=== PATIENT | female | born 1990 | race Hispanic/Latino ===

== ENCOUNTER 2023-03-21 17:23 | Inpatient (IN) | payer MEDICAID, OTHER ==
[2023-03-21] MEDS ORDERED: Carboprost 250 MCG/ML AMP IM PRN (19:02)
[2023-03-21] MEDS ORDERED: Ondansetron PF 4 MG/2 ML Vial IVP PRN (19:02)
[2023-03-21] MEDS ORDERED: Ibuprofen 800 MG TAB PO PRN (19:02)
[2023-03-21] MEDS ORDERED: Acetaminophen 500 MG TAB PO PRN (19:02)
[2023-03-21] MEDS ORDERED: fentaNYL 50 mcg/mL 1 mL Vial SLOW IVP PRN (19:02)
[2023-03-21] MEDS ORDERED: Misoprostol 200 MCG TAB PR PRN (19:02)
[2023-03-21] MEDS ORDERED: Lidocaine 1% (PF) 30 ML VIAL SC PRN (19:02)
[2023-03-21] MEDS ORDERED: Promethazine HCl 25 MG/ML VIAL IM PRN (19:02)
[2023-03-21] MEDS ORDERED: Tranexamic Acid 1,000 MG/10 ML VIAL IVP PRN (19:02)
[2023-03-21] MEDS ORDERED: Methylergonovine 0.2 MG/ML VIAL IM PRN (19:02)
[2023-03-21] MEDS ORDERED: hydrALAZINE 20 MG/ML VIAL SLOW IVP PRN (19:02)
[2023-03-21] MEDS ORDERED: Diphenoxylate HCl/Atropine Tablet PO PRN (19:02)
[2023-03-21 19:13] LABS: Fetal Membranes Rupture RUPTURE DETECTED (No Rupture)
[2023-03-21] MEDS ORDERED: Penicillin G Potassium 5 MILL.UNITS in Sodium Chloride 0.9% 100 ML IVPB SCH (19:15)
[2023-03-21] MEDS ORDERED: Lactated Ringer's 1,000 ML IV SCH (19:15)
[2023-03-21] MEDS ORDERED: Betamet Acet/Betamet Na Ph 30 MG/5 ML VIAL IM SCH (19:15)
[2023-03-21] MEDS ORDERED: Misoprostol 100 MCG TAB VAG SCH (19:15)
[2023-03-21] MEDS ORDERED: Oxytocin 30 units/NS 500 ML 500 ML IV SCH ×2 (19:15)
[2023-03-21] MEDS ORDERED: Labetalol HCl 100 MG/20 ML VIAL SLOW IVP PRN (20:24)
[2023-03-21 21:16] LABS: Hematocrit 28.6 % (34.9-44.5); Mean Corpuscular Hemoglobin 26.5 pg (27.0-33.0); Mean Corpuscular Volume 75.9 fl (81.6-98.3); Mean Platelet Volume 10.1 fl (7.4-10.4); Platelet Count 263 10x3/uL (150-450); RBC Distribution Width 13.2 % (11.5-14.5); Red Blood Cell (RBC) Count 3.77 10x6/uL (3.90-5.03); White Blood Cell (WBC) Count 5.4 10x3/uL (3.5-10.5)
[2023-03-21 21:29] LABS: HBSAg Index 0.14 S/CO (0-0.99); Hep B Surf Ag - L&D Non-Reactive S/CO (NonReactive)
[2023-03-21 21:30] LABS: Syphilis Antibody Nonreactive (Nonreactive); Syphilis Antibody Index 0.05 S/CO (<1.00 Non-Reactive)
[2023-03-21 22:00] VITALS: BMI 35.9
[2023-03-21 22:17] LABS: Glucose 95 mg/dL (70-105)
[2023-03-21] MEDS ORDERED: Penicillin G 2.5 MILL.units 2.5 MILL.UNITS in Premix 1 BAG IVPB SCH (23:15)
[2023-03-22] MEDS ORDERED: Ondansetron PF 4 MG/2 ML Vial IVP PRN (06:07)
[2023-03-22] MEDS ORDERED: Boostrix 0.5 ML (Tdap) VIAL (>/=7 yrs of age) IM ONE (06:07)
[2023-03-22] MEDS ORDERED: Bisacodyl 10 MG SUPP PR PRN (06:07)
[2023-03-22] MEDS ORDERED: Milk Of Magnesia 30 ML UDCUP PO PRN (06:07)
[2023-03-22] MEDS ORDERED: Lanolin Ointment 7 GM TUBE TOP PRN (06:07)
[2023-03-22] MEDS ORDERED: hydrALAZINE 20 MG/ML VIAL SLOW IVP PRN (06:07)
[2023-03-22] MEDS: Ibuprofen 800 MG TAB PO SCH ×3 (06:28→22:10)
[2023-03-22] MEDS: Docusate 100 MG CAP PO SCH ×2 (07:37→22:10)
[2023-03-22] MEDS: Prenatal Vitamin 1 TAB PO SCH (07:37)
[2023-03-22] MEDS: Ferrous Sulfate 325 MG TAB PO SCH ×2 (07:37→16:23)
[2023-03-22] MEDS ORDERED: Glucagon 1 MG/ML KIT IM PRN (09:43)
[2023-03-22] MEDS ORDERED: Dextrose 50% Abboject 50 ML SYRINGE SLOW IVP PRN (09:43)
[2023-03-22] MEDS ORDERED: Dextrose 5% in Water 1,000 ML IV PRN (09:43)
[2023-03-23] MEDS: Ibuprofen 800 MG TAB PO SCH ×3 (06:13→21:53)
[2023-03-23] MEDS: Ferrous Sulfate 325 MG TAB PO SCH ×2 (07:47→17:59)
[2023-03-23] MEDS: Docusate 100 MG CAP PO SCH ×2 (07:48→21:53)
[2023-03-23] MEDS: Prenatal Vitamin 1 TAB PO SCH (07:48)
[2023-03-23] MEDS: metFORMIN 500 MG TAB PO SCH (18:18)
[2023-03-24] MEDS: Ibuprofen 800 MG TAB PO SCH ×2 (05:47→13:52)
[2023-03-24] MEDS: metFORMIN 500 MG TAB PO SCH (08:07)
[2023-03-24] MEDS: Docusate 100 MG CAP PO SCH (08:07)
[2023-03-24] MEDS: Ferrous Sulfate 325 MG TAB PO SCH (08:07)
[2023-03-24] MEDS: Prenatal Vitamin 1 TAB PO SCH (08:07)
[2023-03-24 08:17] VITALS: BP 130/87; TEMP 99
== END 2023-03-24 16:00 | disposition home or self-care (01) | DRG 807 ==
LOC: CSHLD/OP 17:23 → CSHLD 19:24 → CSHPP 03-22 05:52
PROVIDERS: ADMIT Family Medicine; ATTEND Family Medicine
PROC: 10E0XZZ Delivery of Products of Conception, External Approach (ICD-10-PCS; principal; 2023-03-22)
DX: O42.013 Preterm premature rupture of membranes, onset of labor within 24 hours of rupture, third trimester (principal); Z37.0 Single live birth; Z3A.35 35 weeks gestation of pregnancy; O24.429 Gestational diabetes mellitus in childbirth, unspecified control; O16.4 Unspecified maternal hypertension, complicating childbirth
CPT/HCPCS: 36416; 82947; 84112; 85027; 86780; 86850; 86900; 86901; 87340; J3010

== ENCOUNTER 2024-03-10 17:55 | Inpatient (IN) | payer MEDICAID, OTHER ==
[2024-03-10] MEDS ORDERED: Promethazine HCl 25 MG/ML VIAL IM PRN (20:00)
[2024-03-10] MEDS ORDERED: Misoprostol 200 MCG TAB PR PRN (20:00)
[2024-03-10] MEDS ORDERED: Carboprost 250 MCG/ML AMP IM PRN (20:00)
[2024-03-10] MEDS ORDERED: Tranexamic Acid 1,000 MG/10 ML VIAL IVP PRN (20:00)
[2024-03-10] MEDS ORDERED: Ibuprofen 800 MG TAB PO PRN (20:00)
[2024-03-10] MEDS ORDERED: Diphenoxylate HCl/Atropine Tablet PO PRN (20:00)
[2024-03-10] MEDS ORDERED: Ondansetron PF 4 MG/2 ML Vial IVP PRN (20:00)
[2024-03-10] MEDS ORDERED: hydrALAZINE 20 MG/ML VIAL SLOW IVP PRN (20:00)
[2024-03-10] MEDS ORDERED: Acetaminophen 500 MG TAB PO PRN (20:00)
[2024-03-10] MEDS ORDERED: Lidocaine 1% (PF) 30 ML VIAL SC PRN (20:00)
[2024-03-10] MEDS ORDERED: Oxytocin 30 units/NS 500 ML 500 ML IV SCH ×2 (20:00)
[2024-03-10] MEDS: Oxytocin 30 units/NS 500 ML 500 ML IV SCH (21:03)
[2024-03-10 21:51] LABS: #Basophils 0.01 10x3/uL (0.0-0.2); #Eosinophils 0.08 10x3/uL (0.0-0.5); #Monocytes 0.53 10x3/uL (0.0-1.1); #Neutrophils 3.48 10x3/uL (1.5-8.4); %Basophils 0.2 % (0.0-2.0); %Eosinophils 1.3 % (0.0-6.0); %Lymphocytes 31.7 % (18.0-47.0); %Monocytes 8.7 % (0.0-10.0); %Neutrophils 57.4 % (40.0-75.0); Hematocrit 31.1 % (34.9-44.5); Hemoglobin 10.4 g/dL (12.0-15.5); Mean Corpuscular HGB CONC 33.4 g/dL (32.0-36.0); Mean Corpuscular Hemoglobin 25.8 pg (27.0-33.0); Mean Corpuscular Volume 77.2 fL (81.6-98.3); Mean Platelet Volume 10.2 fL (7.4-10.4); Platelet Count 280 10x3/uL (150-450); RBC Distribution Width 19.1 % (11.5-14.5); Red Blood Cell (RBC) Count 4.03 10x6/uL (3.90-5.03); White Blood Cell (WBC) Count 6.1 10x3/uL (3.5-10.5)
[2024-03-10 22:00] LABS: ALT (SGPT) Less than 7 U/L (8-55); AST (SGOT) 19 U/L (5-34); Albumin 3.1 g/dL (3.5-5.0); Alkaline Phosphatase 121 U/L (40-110); Anion Gap 16 mmol/L (10-20); BUN (Urea Nitrogen) 7 mg/dL (7.0-18.7); Bilirubin, Total 0.4 mg/dL (0.2-1.2); Calc. Creatinine Clearance 170 mL/min (70-130); Calcium 9.2 mg/dL (7.8-10.44); Carbon Dioxide 18 mmol/L (22-29); Chloride 105 mmol/L (98-107); Estimated GFR 119; Globulin 3.5 g/dL (2.4-3.5); Glucose 98 mg/dL (70-105); Potassium 3.9 mmol/L (3.5-5.1); Protein, Total 6.6 g/dL (6.0-8.3); Sodium 135 mmol/L (136-145)
[2024-03-10 22:00] LABS: Creatinine, Urine 157.96 mg/dL (47-110); Protein, Urine Random Quant Less than 10 mg/dL (1-14)
[2024-03-10 22:50] LABS: Syphilis Antibody Nonreactive (Nonreactive); Syphilis Antibody Index 0.05 S/CO (<1.00 Non-Reactive)
[2024-03-10 22:51] LABS: HBsAg Index 0.24 S/CO (0-0.99); Hep B Surf Ag - L&D Non-Reactive S/CO (NonReactive)
[2024-03-10 23:47] VITALS: BMI 38.7
[2024-03-11] MEDS: Lactated Ringer's 1,000 ML IV SCH (04:02)
[2024-03-11] MEDS ORDERED: Boostrix 0.5 ML (Tdap) VIAL (>/=7 yrs of age) IM ONE (08:10)
[2024-03-11] MEDS ORDERED: Bisacodyl 10 MG SUPP PR PRN (08:10)
[2024-03-11] MEDS: Ibuprofen 800 MG TAB PO SCH (14:10)
[2024-03-11] MEDS: HYDROcodone/Acetaminophen 5/325 mg Tablet PO PRN (16:14)
[2024-03-11] MEDS: Prenatal Vitamin 1 TAB PO SCH (16:16)
[2024-03-11] MEDS: Docusate 100 MG CAP PO SCH (16:16)
[2024-03-12 04:14] LABS: Hematocrit 29.5 % (34.9-44.5); Hemoglobin 9.6 g/dL (12.0-15.5)
[2024-03-12 11:19] VITALS: BP 135/77; TEMP 97.8
== END 2024-03-12 15:00 | disposition home or self-care (01) | DRG 806 ==
LOC: CSHLD 17:55 → CSHPP 03-11 10:05
PROVIDERS: ADMIT Family Medicine; ATTEND Family Medicine
PROC: 10E0XZZ Delivery of Products of Conception, External Approach (ICD-10-PCS; principal; 2024-03-11)
PROC: 0HQ9XZZ Repair Perineum Skin, External Approach (ICD-10-PCS; 2024-03-11)
DX: O10.92 Unspecified pre-existing hypertension complicating childbirth (principal); D62 Acute posthemorrhagic anemia; Z37.0 Single live birth; O99.214 Obesity complicating childbirth; O99.02 Anemia complicating childbirth; D57.3 Sickle-cell trait; O24.425 Gestational diabetes mellitus in childbirth, controlled by oral hypoglycemic drugs; Z3A.38 38 weeks gestation of pregnancy; Z79.82 Long term (current) use of aspirin; Z79.84 Long term (current) use of oral hypoglycemic drugs
CPT/HCPCS: 36415; 36416; 80053; 82570; 84156; 85014; 85018; 86780; 86850; 86900; 86901; 87340; J2590; J7120

== ENCOUNTER 2024-03-25 18:46 | Inpatient (IN) | payer MEDICAID ==
[2024-03-25 20:01] VITALS: BMI 32.8
[2024-03-25] MEDS ORDERED: Ondansetron ODT 4 MG TAB PO PRN (20:26)
[2024-03-25] MEDS ORDERED: Bisacodyl 5 MG TAB PO PRN (20:26)
[2024-03-25] MEDS: Lactated Ringer's 1,000 ML IV SCH (20:56)
[2024-03-25 21:20] LABS: #Basophils 0.02 10x3/uL (0.0-0.2); #Eosinophils 0.04 10x3/uL (0.0-0.5); #Monocytes 0.63 10x3/uL (0.0-1.1); #Neutrophils 4.25 10x3/uL (1.5-8.4); %Basophils 0.3 % (0.0-2.0); %Eosinophils 0.6 % (0.0-6.0); %Lymphocytes 22.5 % (18.0-47.0); %Monocytes 9.9 % (0.0-10.0); %Neutrophils 66.5 % (40.0-75.0); Hematocrit 30.1 % (34.9-44.5); Mean Corpuscular HGB CONC 33.2 g/dL (32.0-36.0); Mean Corpuscular Volume 75.3 fL (81.6-98.3); Mean Platelet Volume 9.4 fL (7.4-10.4); Platelet Count 276 10x3/uL (150-450); RBC Distribution Width 18.5 % (11.5-14.5); White Blood Cell (WBC) Count 6.4 10x3/uL (3.5-10.5)
[2024-03-25 21:45] LABS: ALT (SGPT) 21 U/L (8-55); AST (SGOT) 31 U/L (5-34); Albumin 2.7 g/dL (3.5-5.0); Alkaline Phosphatase 129 U/L (40-110); Anion Gap 13 mmol/L (10-20); BUN (Urea Nitrogen) 9 mg/dL (7.0-18.7); Bilirubin, Total 0.5 mg/dL (0.2-1.2); Calc. Creatinine Clearance 128 mL/min (70-130); Calcium 8.1 mg/dL (7.8-10.44); Carbon Dioxide 20 mmol/L (22-29); Chloride 106 mmol/L (98-107); Estimated GFR 91; Globulin 3.1 g/dL (2.4-3.5); Glucose 126 mg/dL (70-105); Potassium 3.3 mmol/L (3.5-5.1); Protein, Total 5.8 g/dL (6.0-8.3); Sodium 136 mmol/L (136-145)
[2024-03-25 22:05] LABS: Bilirubin Neg (Negative); Blood, Urine 150 (Negative); Clarity Slightly Cloudy (Clear); Glucose, Urine (Dipstick) Normal (Negative); Ketone, Urine Negative (Negative); Leukocyte 500 (Negative); Nitrite Negative (Negative); Protein, Urine (Dipstick) 100 mg/dl (Neg-Trace); Urobilinogen Normal mg/dL (Less than 2)
[2024-03-25 22:14] LABS: Transitional Epithelial 0-3 HPF (None Seen); WBC/HPF Greater than 50 HPF (0-3)
[2024-03-25 22:15] LABS: Bacteria/HPF 4+ HPF (None Seen)
[2024-03-25] MEDS: cefTRIAXone\\ROCEPHIN 1 GM in Sodium Chloride 0.9% 100 ML IVPB SCH (22:52)
[2024-03-25] MEDS: Acetaminophen 325 MG TAB PO PRN (22:53)
[2024-03-25] MEDS: Potassium Chloride 20 MEQ TAB PO SCH (22:53)
[2024-03-25] MEDS ORDERED: Furosemide 20 MG TAB PO SCH (23:45)
[2024-03-25] MEDS: Ibuprofen 200 MG TAB PO PRN (23:52)
[2024-03-26 00:47] LABS: Influenza A by NAA Not Detected (NotDetected); Influenza B by NAA Not Detected (NotDetected); RSV by NAA Not Detected (NotDetected); SARS-CoV-2 NAA Rapid Test Not Detected (NotDetected)
[2024-03-26 03:42] LABS: Hematocrit 30.9 % (34.9-44.5); Mean Corpuscular HGB CONC 32.4 g/dL (32.0-36.0); Mean Corpuscular Hemoglobin 24.9 pg (27.0-33.0); Mean Corpuscular Volume 77.1 fL (81.6-98.3); RBC Distribution Width 18.5 % (11.5-14.5); Red Blood Cell (RBC) Count 4.01 10x6/uL (3.90-5.03); White Blood Cell (WBC) Count 7.7 10x3/uL (3.5-10.5)
[2024-03-26 03:43] LABS: #Basophils 0.02 10x3/uL (0.0-0.2); #Eosinophils 0.06 10x3/uL (0.0-0.5); #Monocytes 1.02 10x3/uL (0.0-1.1); #Neutrophils 4.92 10x3/uL (1.5-8.4); %Basophils 0.3 % (0.0-2.0); %Eosinophils 0.8 % (0.0-6.0); %Lymphocytes 21.2 % (18.0-47.0); %Monocytes 13.3 % (0.0-10.0); %Neutrophils 63.9 % (40.0-75.0); Mean Platelet Volume 9.3 fL (7.4-10.4); Platelet Count 262 10x3/uL (150-450)
[2024-03-26 03:57] LABS: ALT (SGPT) 27 U/L (8-55); AST (SGOT) 41 U/L (5-34); Albumin 2.5 g/dL (3.5-5.0); Alkaline Phosphatase 128 U/L (40-110); Anion Gap 14 mmol/L (10-20); BUN (Urea Nitrogen) 9 mg/dL (7.0-18.7); Bilirubin, Total 0.4 mg/dL (0.2-1.2); Calc. Creatinine Clearance 117 mL/min (70-130); Carbon Dioxide 20 mmol/L (22-29); Chloride 109 mmol/L (98-107); Estimated GFR 82; Globulin 3.4 g/dL (2.4-3.5); Glucose 136 mg/dL (70-105); Potassium 3.5 mmol/L (3.5-5.1); Protein, Total 5.9 g/dL (6.0-8.3); Sodium 139 mmol/L (136-145)
[2024-03-26] MEDS: Prenatal Vitamin 1 TAB PO SCH (08:53)
[2024-03-26] MEDS ORDERED: Enoxaparin 30 MG (0.3 mL) SYRINGE SC SCH (09:00)
[2024-03-26] MEDS ORDERED: Iopamidol 370 76% 100 ML VIAL ONE (09:24)
[2024-03-26] MEDS: Piperacillin/Tazobactam 3.375 GM in Sodium Chloride 0.9% 100 ML IVPB SCH ×2 (18:12→22:36)
[2024-03-27 04:16] LABS: #Basophils 0.02 10x3/uL (0.0-0.2); #Eosinophils 0.19 10x3/uL (0.0-0.5); #Monocytes 0.86 10x3/uL (0.0-1.1); %Basophils 0.3 % (0.0-2.0); %Eosinophils 2.9 % (0.0-6.0); %Lymphocytes 25.7 % (18.0-47.0); %Neutrophils 57.3 % (40.0-75.0); Hematocrit 30.5 % (34.9-44.5); Hemoglobin 9.8 g/dL (12.0-15.5); Mean Corpuscular HGB CONC 32.1 g/dL (32.0-36.0); Mean Corpuscular Hemoglobin 24.6 pg (27.0-33.0); Mean Corpuscular Volume 76.6 fL (81.6-98.3); Mean Platelet Volume 9.8 fL (7.4-10.4); Platelet Count 287 10x3/uL (150-450); RBC Distribution Width 18.5 % (11.5-14.5); Red Blood Cell (RBC) Count 3.98 10x6/uL (3.90-5.03); White Blood Cell (WBC) Count 6.6 10x3/uL (3.5-10.5)
[2024-03-27 04:17] LABS: ALT (SGPT) 30 U/L (8-55); AST (SGOT) 44 U/L (5-34); Albumin 2.2 g/dL (3.5-5.0); Alkaline Phosphatase 150 U/L (40-110); Anion Gap 12 mmol/L (10-20); BUN (Urea Nitrogen) 8 mg/dL (7.0-18.7); Bilirubin, Total 0.4 mg/dL (0.2-1.2); Calc. Creatinine Clearance 127 mL/min (70-130); Calcium 8.1 mg/dL (7.8-10.44); Carbon Dioxide 23 mmol/L (22-29); Chloride 107 mmol/L (98-107); Estimated GFR 90; Globulin 2.9 g/dL (2.4-3.5); Glucose 109 mg/dL (70-105); Magnesium 1.8 mg/dL (1.6-2.6); Protein, Total 5.1 g/dL (6.0-8.3); Sodium 138 mmol/L (136-145)
[2024-03-28 04:54] LABS: #Basophils 0.02 10x3/uL (0.0-0.2); #Eosinophils 0.34 10x3/uL (0.0-0.5); #Monocytes 0.63 10x3/uL (0.0-1.1); #Neutrophils 2.87 10x3/uL (1.5-8.4); %Basophils 0.3 % (0.0-2.0); %Eosinophils 5.9 % (0.0-6.0); %Lymphocytes 31.3 % (18.0-47.0); %Monocytes 10.9 % (0.0-10.0); %Neutrophils 49.5 % (40.0-75.0); ALT (SGPT) 23 U/L (8-55); AST (SGOT) 18 U/L (5-34); Albumin 2.3 g/dL (3.5-5.0); Alkaline Phosphatase 129 U/L (40-110); Anion Gap 12 mmol/L (10-20); BUN (Urea Nitrogen) 8 mg/dL (7.0-18.7); Bilirubin, Total 0.2 mg/dL (0.2-1.2); Calc. Creatinine Clearance 131 mL/min (70-130); Calcium 7.7 mg/dL (7.8-10.44); Carbon Dioxide 23 mmol/L (22-29); Chloride 110 mmol/L (98-107); Estimated GFR 94; Globulin 2.6 g/dL (2.4-3.5); Glucose 126 mg/dL (70-105); Hematocrit 30.2 % (34.9-44.5); Hemoglobin 9.5 g/dL (12.0-15.5); Mean Corpuscular HGB CONC 31.5 g/dL (32.0-36.0); Mean Corpuscular Hemoglobin 24.4 pg (27.0-33.0); Mean Corpuscular Volume 77.6 fL (81.6-98.3); Mean Platelet Volume 9.8 fL (7.4-10.4); Platelet Count 304 10x3/uL (150-450); Potassium 3.9 mmol/L (3.5-5.1); Protein, Total 4.9 g/dL (6.0-8.3); RBC Distribution Width 18.6 % (11.5-14.5); Red Blood Cell (RBC) Count 3.89 10x6/uL (3.90-5.03); Sodium 141 mmol/L (136-145); White Blood Cell (WBC) Count 5.8 10x3/uL (3.5-10.5)
[2024-03-29 07:35] VITALS: BP 139/90; TEMP 97.9
== END 2024-03-29 11:30 | disposition home or self-care (01) | DRG 776 ==
LOC: CSHTELE 18:54 → CSHPP 03-27 17:18
PROVIDERS: ADMIT Student in an Organized Health Care Education/Training Program; ATTEND Student in an Organized Health Care Education/Training Program
DX: O85 Puerperal sepsis (principal); O86.21 Infection of kidney following delivery; B96.20 Unspecified Escherichia coli [E. coli] as the cause of diseases classified elsewhere; O16.5 Unspecified maternal hypertension, complicating the puerperium; O90.81 Anemia of the puerperium; O99.215 Obesity complicating the puerperium; O90.89 Other complications of the puerperium, not elsewhere classified; R74.01 Elevation of levels of liver transaminase levels; E86.0 Dehydration; D57.3 Sickle-cell trait
CPT/HCPCS: 0241U; 36415; 74177; 80053; 81001; 83735; 84145; 85025; 86140; 87040; 87077; 87086; 87149; 87186; J0696; J2543; J7120; Q9967